=== PATIENT | female | born 1965 | race Two or more races ===

== ENCOUNTER 2019-09-15 09:18 | Day surgery (SDC) | payer OTHER ==
[2019-09-15] VITALS (9 sets, daily range): BP systolic 99–116; BP diastolic 68–81
[~2019-09-15] VITALS: Ht 167.6 cm; Wt 83.9 kg
--- NOTE | 2019-09-15 07:08 | Pre-Procedure Note/Attestation ---
Pre-Procedure Note/Attestation Complete Prior to Procedure Planned Procedure: right Procedure Narrative: rt ctr and middle trigger finger release Indications for Procedure Pre-Operative Diagnosis: rt cts and middle trigger finger Attestation I attest that I discussed the nature of the procedure; its benefits; risks and complications; and alternatives (and the risks and benefits of such alternatives ), prior to the procedure, with the patient (or the patient's legal policy services representative). I attest that, if there was a reasonable possibility of needing a blood transfusion, the patient (or the patient's legal policy services representative) was given the [facility] standardized written summary, pursuant to the Abner Deltana Blood Safety Act ([place] Health and Safety Code # 1645, as amended). I attest that I re-evaluated the patient just prior to the surgery and that there has been no change in the patient's H&P, except as documented below: none Agustin Bobby MD Sep 15, 2019 07:08
[~2019-09-15 09:18] MED LIST: ceFAZolin 1gm IVPB IVPB ONE; celeBREX 200mg Cap **SURGERY PATIENTS ONLY ORAL ONE; oxyCONTIN 10mg tab ORAL ONE
[2019-09-15] MEDS ORDERED: LR 1000ml ONE (09:19)
[2019-09-15] MEDS ORDERED: NS Irrig 1000ml ONE (09:19)
[2019-09-15] MEDS ORDERED: Sterile Water Irrig 1000ml IRRIG ONE (09:19)
[2019-09-15] MEDS ORDERED: oxyCONTIN 10mg tab ORAL ONE (10:08)
[2019-09-15] MEDS ORDERED: celeBREX 200mg Cap **SURGERY PATIENTS ONLY ORAL ONE (10:08)
[2019-09-15] MEDS ORDERED: Lidocaine 1% Plain 30 ml INJ ONE (11:12)
[2019-09-15] MEDS ORDERED: Bupivacaine w/Epi 0.5% 30ml Vial INJ ONE (11:12)
[2019-09-15] MEDS ORDERED: Bupivacaine 0.5% Inj 30 ml vial INJ ONE (11:12)
[2019-09-15] MEDS ORDERED: fentaNYL 100 mcg/2 mL IV ONE (11:22)
[2019-09-15] MEDS ORDERED: HYDROmorphone 1mg/ml Carpuject SUBQ PRN (12:00)
[2019-09-15] MEDS ORDERED: D5 1/2NS 1,000 ML IV SCH (12:00)
[2019-09-15] MEDS ORDERED: Tylenol #3 tab (300mg/30mg) ORAL PRN (12:00)
[2019-09-15] MEDS ORDERED: HYDROcodone/Acetamin 5/325 tab ORAL PRN (12:00)
[2019-09-15] MEDS ORDERED: Lidocaine 1% MPF 10mg/ml 5ml ONE (12:12)
--- NOTE | 2019-09-15 12:25 | Brief Operative Note ---
Immediate Post Operative Note Operative Note Chief Complaint: rt hand pain and triggering Pre-op Diagnosis: rt middle trigger finger and cts Procedure: rt ctr, middle trigger finger release Post-op Diagnosis: same as pre-op Findings: consistent w/pre-op dx studies Surgeon: md richa Document Control Clerk: omar mason Anesthesiologist: MARCUS cobb Anesthesia: general Specimen: none Complications: none Condition: stable Fluids: ns Estimated Blood Loss: minimal Drains: none Implant(s) used?: No Oralia Mason Sep 15, 2019 12:25
--- NOTE | 2019-09-15 12:33 | Anethesia Preoperative Eval ---
Anesthesia Pre-op PMH/ROS General Date of Evaluation: Sep 15, 2019 Time of Evaluation: 11:35 Anesthesiologist: khalif ASA Score: ASA 1 Mallampati Score Class I : Soft palate, uvula, fauces, pillars visible Class II: Soft palate, uvula, fauces visible Class III: Soft palate, base of uvula visible Class IV: Only hard plate visible Mallampati Classification: Class II Surgeon: Diamante Diagnosis: carpal tunnel Surgical Procedure: Carpal tunnel release Anesthesia History: none Family History: no anesthesia problems Allergies: Coded Allergies: LATEX (Verified Allergy, Severe, swelling,shortness of breath, 09/11/19) PROPOXYPHENE (Verified Allergy, Severe, Hives, 09/11/19) ACETAMINOPHEN (Verified Allergy, Unknown, Hives, 09/11/19) OXYCODONE (Verified Allergy, Unknown, Hives, 09/11/19) Medications: see eMAR Patient NPO?: Yes NPO Date: Sep 15, 2019 NPO Time: 00:01 Past Medical History Cardiovascular: Denies: HTN, CAD, HI, valve dz, arrhythmia, other Pulmonary: Denies: asthma, COPD, DOROTEO, other Gastrointestinal/Genitourinary: Denies: GERD, CRI, ESRD, other Neurologic/Psychiatric: Denies: dementia, CVA, depression/anxiety, TIA, other Endocrine: Denies: DM, hypothyroidism, steroids, other HEENT: Denies: cataract (L), cataract (R), glaucoma, SHUNG[place]K (L), SHUNG[place]K (R), other Hematology/Immune: Denies: anemia, DVT, bleeding disorder, other Musculoskeletal/Integumentary: Denies: OA, RA, DJD, DDD, edema, other PSxH Narrative: see chart Anesthesia Pre-op Phys. Exam Physician Exam Last Vital Signs Date Time Temp Pulse Resp B/P (MAP) Pulse Ox O2 Delivery O2 Flow Rate FiO2 09/15/19 10:04 97.4 72 20 116/81 100 Room Air Constitutional: NAD Cardiovascular: RRR Respiratory: CTA Gastrointestinal: S/NT/ND Airway Exam Mallampati Classification 2 Mallampati Score: Class II MO: full ROM: full Dentures: no upper, no lower Anesthesia Pre-op A/P Studies Pre-op Studies: EKG - SR Risk Assessment & Plan Plan: mac Pre-Antibiotics Drug: ancef Given Within 1 Hr of Incision: Yes Time Given: 11:40 Alicia Hi CARE DIRECTOR Sep 15, 2019 12:33
--- NOTE | 2019-09-15 12:35 | Immediate Post-Op Evaluation ---
Immediate Post-Op Evalulation Immediate Post-Op Evalulation Procedure: right carpal tunnel release Date of Evaluation: Sep 15, 2019 Time of Evaluation: 12:30 IV Fluids: 500 Blood Pressure Systolic: 107 Blood Pressure Diastolic: 60 Pulse Rate: 70 Respiratory Rate: 14 O2 Sat by Pulse Oximetry: 99 Temperature (Fahrenheit): 98 Nausea: No Vomiting: No Complications none Patient Status: awake, reacts, patent Hydration Status: adequate Drug: ancef Given Within 1 Hr of Incision: Yes Time Given: 11:45 Alicia Hi CRNA Sep 15, 2019 12:35
--- NOTE | 2019-09-15 12:44 | 48 Hour Post Anesthesia Eval ---
Post Anesthesia Evaluation Procedure: right carpal tunnel release Date of Evaluation: Sep 15, 2019 Time of Evaluation: 12:44 Blood Pressure Systolic: 106 0: 76 Pulse Rate: 65 Respiratory Rate: 14 O2 Sat by Pulse Oximetry: 98 Airway: patent Nausea: No Vomiting: No Hydration Status: adequate Cardiopulmonary Status: stable Mental Status/LOC: patient returned to baseline Follow-up Care/Observations: na Post-Anesthesia Complications: none Follow-up care needed: N/A Alicia Hi CRNA Sep 15, 2019 12:44
[2019-09-15] MEDS ORDERED: fentaNYL 100 mcg/2 mL IV PRN (12:45)
--- NOTE | 2019-09-15 22:15 | Operative Note - Dictated ---
DATE OF OPERATION: 09/15/2019 PREOPERATIVE DIAGNOSES: 1. Right hand carpal tunnel syndrome. 2. Right hand middle finger trigger finger. POSTOPERATIVE DIAGNOSES: 1. Right hand carpal tunnel syndrome. 2. Right hand middle finger trigger finger. PROCEDURE: 1. Right hand carpal tunnel release. 2. Right hand middle finger trigger finger release. SURGEON: Agustin Bobby MD. SLEEP TECHNOLOGIST: REBEKAH Ayon. Oncology Radiation Physician was present during the actual operative portion of the case and was important and essential part of the operation. During the operation, the assistant women's tennis coach held and operated the arthroscopic camera for visualization, assisted by manipulating the arm to help with visualization, and helped with essential parts of the repair process as necessary such as operating surgical instruments under surgeon supervision, suture management, and wound closures. ANESTHESIOLOGIST: Alicia Hi CRNA. ANESTHESIA: Local MAC anesthesia with injection of the trigger finger area with 0.5% plain Marcaine and injection of the carpal tunnel area with 0.5% Marcaine with epinephrine. TOURNIQUET TIME: 15 minutes. COMPLICATIONS: None. BRIEF HISTORY: The patient is a pleasant 53-year-old female who has had ongoing carpal tunnel syndrome and triggering of the middle finger. She was treated nonoperatively and she failed. She continued to have numbness, tingling, and triggering of the middle finger. After full discussion of risks and benefits of the surgery and complications associated with it including infection, bleeding, neurovascular complication, possibility of continued triggering, possibility of continued numbness and tingling, possibility of continued pain, and other complications that may arise, she opted for surgical treatment as described above. OPERATIVE PROCEDURE: The patient was brought to the operating room table and was placed supine. All pressure points were well padded. Local MAC anesthesia was induced as described above. The area of the trigger finger was injected with 0.5% plain Marcaine, total of 8 mL, and the area of the carpal tunnel was injected with 6 mL of 0.5% Marcaine with epinephrine. The right arm was prepped and draped in usual sterile fashion. The arm was exsanguinated. Tourniquet was inflated to 275 mmHg. A standard incision was made over the trigger finger in line with the distal palmar crease. The incision was taken through subcutaneous tissue. Care was given to retract neurovascular structures out of the way. The A1 andres was identified and using a combination of scissors and knife, the A1 andres was completely released. The profundus and superficialis tendons were then brought out of the wound and were examined. There were no tears. There was no significant synovitis. At this point, care was given to the carpal tunnel area. A standard incision was made over the carpal tunnel area distal to the wrist crease extending 2.5 cm. The incision was taken through subcutaneous tissue and the palmaris fascia was opened. The transverse carpal ligament was identified and this was divided all the way distally to the fatty area surrounding the palmar arch. Proximally, the release was performed to the proximal edge of the incision distal to the wrist crease and then subsequently subcutaneous dissection was performed proximally all the way to the proximal wrist crease over and under the ligament. The ligament was then released subcutaneously under direct visualization using Littler scissors. Complete release of carpal tunnel was performed in this fashion. The nerve was visualized and was intact, although it was slightly narrowed and hyperemic around the area. All wounds were thoroughly irrigated using copious amount of fluid. The tourniquet was deflated and there was minimal bleeding, which was stabilized. The wounds were closed using 3-0 interrupted horizontal mattress nylon sutures. Sterile dressing was applied. The patient was taken to recovery room in stable condition. All lap counts and instrument counts were correct. Agustin Bobby M.D. DR: Bishop JOB#: [id number] CC:
== END 2019-09-15 13:50 | disposition home or self-care (01) ==
LOC: SUR 09:18
DX: G56.01 Carpal tunnel syndrome, right upper limb (principal); M65.331 Trigger finger, right middle finger; Z88.6 Allergy status to analgesic agent; Z91.040 Latex allergy status
CPT/HCPCS: 26055; 64721; 94003; J0690; J2250; J2704; J3010; J3490; J7120; 94150